=== PATIENT | male | born 1970 | race Caucasian/White ===

== ENCOUNTER 2024-04-09 10:07 | Emergency (ER) | payer OTHER ==
[2024-04-09] MEDS ORDERED: KETOROLAC 30 MG/ML INJ ONE (10:51)
[2024-04-09] MEDS ORDERED: METHYLPREDNISOLONE 125 MG INJ ONE (10:51)
--- NOTE | 2024-04-09 10:53 | EDPHYS ---
Physician Documentation [facility] Name: Delfino Mcgee Age: 53 yrs Sex: Male : 1970 Arrival Date: 04/09/2024 Time: 10:07 Bed DX3 Private MD: ED Physician Britt Alonso HPI: 04/09 10:48 This 53 yrs old Male presents to ER via Ambulatory with complaints of Fever, Sore sd2 Throat, Back Pain. 10:48 53 yo M presents with CC of flu-like symptoms x2 days and sciatica flare. Reports sd2 subjective fever and took medication for fever this AM prior to arrival with sore throat, congestion and hoarse voice. Also reports left lower back pain radiating down his LLE with no numbness, weakness, bowel or bladder issues. Prior hx of [facility] that [facility] . Historical: - Allergies: 10:30 No Known Allergies; bp - PMHx: 10:30 Hypertensive disorder; bp - Immunization history:: Adult Immunizations up to date. - Infectious Disease History:: Denies. - Social history:: Smoking status: Patient denies any tobacco usage or history of. ROS: 10:48 Eyes: Negative for injury, pain, redness, and discharge, sd2 10:48 Cardiovascular: Negative for chest pain, palpitations, and edema, Respiratory: Negative for shortness of breath, cough, wheezing. Abdomen/GI: Negative for abdominal pain, nausea, vomiting, diarrhea. 10:48 MS/Extremity: Negative for injury and deformity, Skin: Negative for injury, rash, and discoloration, Neuro: Negative for headache, numbness and tingling. 10:48 Constitutional: Positive for fever, malaise, Negative for poor PO intake, weight loss, 10:48 Back: Positive for pain with movement, radiated pain, Negative for injury or acute deformity, Exam: 10:48 Constitutional: This is a well developed, well nourished patient who is awake, alert, sd2 and in no acute distress. Head/Face: Normocephalic, atraumatic. Eyes: EOMI, normal conjunctiva bilaterally ENT: Nares patent. No nasal discharge, no septal abnormalities noted. Tympanic membranes are normal and external auditory canals are clear. Oropharynx with no redness, swelling, or masses, exudates, or evidence of obstruction, uvula midline. Mucous membranes moist. Neck: Trachea midline, no thyromegaly or masses palpated, and no cervical lymphadenopathy. Supple, full range of motion without nuchal rigidity, or vertebral point tenderness. No Meningismus. Chest/axilla: Normal chest wall appearance and motion. Nontender with no deformity. Cardiovascular: Regular rate and rhythm with a normal S1 and S2. No gallops, murmurs, or rubs. 2+ distal pulses. Respiratory: Lungs have equal breath sounds bilaterally, clear to auscultation and percussion. No rales, rhonchi or wheezes noted. No increased work of breathing, no retractions or nasal flaring. Back: No spinal tenderness. No costovertebral tenderness. Full range of motion. L lower lumbar paraspinal musculature tenderness and left gluteal tenderness Skin: Warm, dry with normal turgor. Normal color with no rashes, no lesions, and no evidence of cellulitis. MS/ Extremity: Pulses equal, no cyanosis. Neurovascular intact. Full, normal range of motion. Neuro: Awake and alert, GCS 15, oriented to person, place, time, and situation. Motor strength 5/5 in all extremities. Sensory grossly intact. Normal gait. Psych: Awake, alert, with orientation to person, place and time. Behavior, mood, and affect are within normal limits. Vital Signs: 10:15 BP 160 / 107; Pulse 102; Resp 16; Temp 97.2; Pulse Ox 98% ; bp MDM: 10:24 Patient medically screened. sd2 10:48 Differential diagnosis: sciatica, spasm, sprain, strain, viral URI, AOM among others. sd2 Data reviewed: vital signs, nurses notes. I considered the following discharge prescriptions or medication management in the emergency department Medications were administered in the Emergency Department. See MAR. Test considered but Not performed: Labs: Viral swabs declined by patient. Care significantly affected by the following chronic conditions: Hypertension. Counseling: I had a detailed discussion with the patient and/or guardian regarding the historical points, exam findings, and any diagnostic results supporting the discharge/admit diagnosis, the need for outpatient follow up, to return to the emergency department if symptoms worsen or persist or if there are any questions or concerns that arise at home. Administered Medications: 10:56 Drug: Ketorolac IM 60 mg IM once Route: IM; Site: left deltoid; bp 10:57 Follow up: Response: No adverse reaction bp 10:56 Drug: MethylPREDNISolone Acetate IM 80 mg IM once Route: IM; Site: right deltoid; bp 10:57 Follow up: Response: No adverse reaction bp Disposition Summary: 04/09/24 10:52 Discharge Ordered Problem: an acute exacerbation sd2 Symptoms: have improved sd2 Condition: Stable sd2 Diagnosis - Flu-like symptoms sd2 - Left sided low back pain sd2 - History of sciatica sd2 Followup: sd2 - With: Private Physician - When: 2 - 3 days - Reason: Recheck today's complaints, Continuance of care, Re-evaluation by your physician Discharge Instructions: - Discharge Summary Sheet sd2 - Sciatica sd2 - Viral Respiratory Infection sd2 - Sciatica Rehab-SportsMed sd2 Forms: - Work release form eb - Medication Reconciliation Form sd2 - Antibiotic Education sd2 - Prescription Opioid Use sd2 - Patient Portal Instructions sd2 - Leadership Thank You Letter sd2 Prescriptions: - methocarbamol 750 mg Oral tablet - take 1 tablet ORAL route every 8 hours As needed; 15 tablet; Refills: 0, sd2 Product Selection Permitted Signatures: Dispatcher [employer] Demond Solis RN RN bp Dunlop, Stephanie, MD MD sd2 Corrections: (The following items were deleted from the chart) 10:26 10:26 SARS-COV-2 Antigen Rapid+I.LAB.BRZ ordered. EDMS EDMS 10:26 10:26 Influenza Screen (A \T\ B)+BA.LAB.BRZ ordered. EDMS EDMS
--- NOTE | 2024-04-09 10:53 | ER ---
Nurse's Notes [facility] Name: Delfino Mcgee Age: 53 yrs Sex: Male : 1970 Arrival Date: 04/09/2024 Time: 10:07 Bed DX3 Private MD: Diagnosis: Flu-like symptoms;Left sided low back pain;History of sciatica Presentation: 04/09 10:15 Chief complaint: Patient states: LEFT SCIATICA PATTERN FLARE UP, FLU-LIKE S/S x2 DAYS. bp Coronavirus screen: At this time, the client does not indicate any symptoms associated with coronavirus-19. Ebola Screen: No symptoms or risks identified at this time. Initial Sepsis Screen: Does the patient meet any 2 criteria? No. Patient's initial sepsis screen is negative. Does the patient have a suspected source of infection? No. Patient's initial sepsis screen is negative. Risk Assessment: Do you want to hurt yourself or someone else? Patient reports no desire to harm self or others. Onset of symptoms is unknown. 10:15 Method Of Arrival: Ambulatory bp 10:15 Acuity: MICHELE 3 bp Triage Assessment: 10:15 General: Appears in no apparent distress. Behavior is calm, cooperative, appropriate bp for age. Pain: Complains of pain in back. EENT: Reports nasal congestion. Neuro: No deficits noted. Cardiovascular: No deficits noted. Respiratory: No deficits noted. GI: No signs and/or symptoms were reported involving the gastrointestinal system. Musculoskeletal: Reports pain in back. Historical: - Allergies: 10:30 No Known Allergies; bp - PMHx: 10:30 Hypertensive disorder; bp - Immunization history:: Adult Immunizations up to date. - Infectious Disease History:: Denies. - Social history:: Smoking status: Patient denies any tobacco usage or history of. Screenin:06 [facility] ED Fall Risk Assessment (Adult) History of falling in the last 3 months, bp including since admission No falls in past 3 months (0 pts) Confusion or Disorientation No (0 pts) Intoxicated or Sedated No (0 pts) Impaired Gait No (0 pts) Mobility Assist Device Used No (0 pt) Altered Elimination No (0 pt) Score/Fall Risk Level 0 - 2 = Low Risk. Abuse screen: Denies threats or abuse. Denies injuries from another. Nutritional screening: No deficits noted. Tuberculosis screening: No symptoms or risk factors identified. Assessment: 11:06 Respiratory: Airway is patent Respiratory effort is even, unlabored, Breath sounds are bp coarse bilaterally. EENT: Throat is reddened. Vital Signs: 10:15 BP 160 / 107; Pulse 102; Resp 16; Temp 97.2; Pulse Ox 98% ; bp ED Course: 10:11 Patient arrived in ED. mr 10:15 Arm band placed on. bp 10:24 Britt Alonso MD is Attending Physician. sd2 10:29 Triage completed. bp 10:55 Demond Lora, NEFTALI is Primary Nurse. bp 11:06 Patient has correct armband on for positive identification. bp 11:06 No provider procedures requiring assistance completed. Patient did not have IV access bp during this emergency room visit. Administered Medications: 10:56 Drug: Ketorolac IM 60 mg IM once Route: IM; Site: left deltoid; bp 10:57 Follow up: Response: No adverse reaction bp 10:56 Drug: MethylPREDNISolone Acetate IM 80 mg IM once Route: IM; Site: right deltoid; bp 10:57 Follow up: Response: No adverse reaction bp Medication: 11:06 VIS not applicable for this client. bp Outcome: 10:52 Discharge ordered by . sd2 11:06 Discharged to home ambulatory, bp 11:06 Condition: stable 11:06 Discharge instructions given to patient, Instructed on discharge instructions, follow up and referral plans. medication usage, Demonstrated understanding of instructions, follow-up care, medications, Prescriptions given X 1, 11:07 Patient left the ED. bp Signatures: Lyn Jones, Landon Reg mr Demond Lora, NEFTALI RN bp Britt Alonso MD MD sd2
[2024-04-09 11:20] VITALS: BP 160/107; TEMP 97.2; O2SAT 98
== END 2024-04-09 11:07 | disposition home or self-care (01) ==
LOC: ER 10:07
DX: J11.1 Influenza due to unidentified influenza virus with other respiratory manifestations (principal); M54.50 Low back pain, unspecified; M54.32 Sciatica, left side; I10 Essential (primary) hypertension
CPT/HCPCS: 96372; 99284; J2919